=== PATIENT | male | born 1980 | race Caucasian/White ===

== ENCOUNTER 2020-02-26 10:09 | Emergency (ER) | payer MEDICAID ==
[~2020-02-26] VITALS: Ht 182.9 cm; Wt 113.0 kg
[~2020-02-26 10:09] MED LIST: TRIA1TAB94
[2020-02-26 11:16] VITALS: BP 126/75
== END 2020-02-26 12:03 | disposition home or self-care (01) ==
LOC: ER 10:09
DX: U07.1 COVID-19 (principal); B34.9 Viral infection, unspecified; R05 Cough
CPT/HCPCS: 71045; 99283